=== PATIENT | male | born 1980 | race Caucasian/White ===

== ENCOUNTER 2019-07-17 09:04 | Emergency (ER) | payer OTHER, SELFPAY ==
[2019-07-17 09:20] VITALS: BP 141/78; PULSE 83; RESP 16; TEMP 36.4; O2SAT 100
--- NOTE | 2019-07-17 10:40 | ED.UPPEXIN ---
HPI - Extremity Injury (Upper) General Chief Complaint: Extremity Injury, Upper Stated Complaint: Laceration on finger Time Seen by Provider: 07/17/19 10:40 Source: patient Mode of arrival: ambulatory Limitations: no limitations History of Present Illness HPI narrative: 38-year-old male who presents to [facility] care with laceration injury to right distal anterior index finger between mid and distal joint region. Patient staes that he was driving a steel pin into concrete at his home preparing to pour concrete patio pad and he hit his finger causing laceration. Patient has full mobility of right index finger denies any tingling or numbness to his right index finger or hand, has strong right radial pulse. Patient states that he has had a tetanus shot in the past 3 years due to past laceration. complaint: injury to: right Onset (ago): hour(s) (approx 2 hours ago) Other Extremity Injury: Right: fingers (1st) Other injuries: none Handedness: right Place: home Severity: mild Severity scale (1-10): 2 Relieving factors: none Exacerbating factors: movement of extremity Context: direct blow and laceration Associated symptoms: denies other symptoms Treatments prior to arrival: bandage Related Data Home Medications Medication Instructions Recorded Confirmed No Home Medications 07/17/19 07/17/19 Allergies Allergy/AdvReac Type Severity Reaction Status Date / Time No Known Allergies Allergy Verified 07/17/19 11:11 Review of Systems Review of Systems: Narrative: CONSTITUTIONAL: Denies fever, chills, or sweats. EYES: Denies visual changes, redness, or discharge. ENT: Denies rhinorrhea, congestion, sore throat, or otalgia. CARDIOVASCULAR: Denies chest pain, palpitations, or edema. RESPIRATORY: Denies cough or dyspnea. GASTROINTESTINAL: Denies abdominal pain, nausea, vomiting, or diarrhea. GENITOURINARY: Denies dysuria or hematuria. SKIN: Denies rash or itching 2cm laceration to right anterior distal region of right index finger. MUSCULOSKELETAL: Denies back pain, joint pain, or myalgia. NEUROLOGIC: Denies headache, numbness, or weakness. PSYCHIATRIC: Denies anxiety or depression. All systems reviewed & are unremarkable except as noted in HPI and below [facility] Social History Social History (Updated 07/21/19 @ 14:54 by Tiffanie Ogden NP) Living arrangements: alone Gender identity (if verbalized by the patient): Male Comments At time of signature, agree with nursing past medical, surgical, social and family history. There is no relevant family history pertinent to the presenting complaint Exam Narrative: Exam Narrative: GENERAL: Well-appearing, well-nourished, and in no acute distress. HEAD: Normocephalic, atraumatic. EYES: PERRLA and EOMI. ENT: Nares clear, no rhinorrhea or epistaxis. Mucous membranes moist. NECK: Supple. CHEST: Clear to auscultation. No respiratory distress. HEART: Regular rate and rhythm. No murmur heard. Normal peripheral pulses. ABDOMEN: Soft, nontender, nondistended, normal active bowel sounds. EXTREMITIES: Normal range of motion. No edema. SKIN: Warm, dry, no rash. 2cm laceration to right anterior index finger with mobility sensation and circulation intact NEURO: No focal deficits. Alert and oriented x3. Course Vital Signs Vital signs: Vital Signs Temperature 36.4 C 07/17/19 09:20 Pulse Rate 83 07/17/19 09:20 Respiratory Rate 16 07/17/19 09:20 Blood Pressure 141/78 H 07/17/19 09:20 Pulse Oximetry 100 07/17/19 09:20 Temperature 36.4 C 07/17/19 09:20 Pulse Rate 83 07/17/19 09:20 Respiratory Rate 16 07/17/19 09:20 Blood Pressure 141/78 H 07/17/19 09:20 Pulse Oximetry 100 07/17/19 09:20 Procedures Laceration Laceration 1: Date: 07/17/19 Time: 10:55 Site: hand (right anterior index finger) Side (If applicable): right Size (cm): 2 Description: flap Depth: simple, single layer Local Anesthetic: lidocaine
== END 2019-07-17 11:18 | disposition home or self-care (01) ==
PROVIDERS: Emergency Provider Registered Nurse
DX: S61.210A Laceration without foreign body of right index finger without damage to nail, initial encounter (principal); X58.XXXA Exposure to other specified factors, initial encounter
CPT/HCPCS: 12001; 99203; G0463